=== PATIENT | male | born 1990 | race American Indian/Alaskan Native ===

== ENCOUNTER 2020-09-19 12:25 | Emergency (ER) | payer SELFPAY ==
[2020-09-19 12:54] VITALS: BP 117/65
== END 2020-09-19 18:42 ==
LOC: ED 12:25
DX: Z53.21 Procedure and treatment not carried out due to patient leaving prior to being seen by health care provider (principal)

== ENCOUNTER 2020-09-29 15:46 | Emergency (ER) | payer SELFPAY ==
--- NOTE | 2020-09-29 16:12 | Event Note ---
ED Screening Note Date of service: 09/29/20 Time: 16:12 ED Screening Note: 29-year-old -[place] Islander male was brought in by mom for concerns of paranoia. Mother reports that [facility] in [facility] with no history of any mental health concerns and now he is being released and is paranoid. This initial assessment/diagnostic orders/clinical plan/treatment(s) is/are subject to change based on patients health status, clinical progression and re- assessment by fellow clinical providers in the ED. Further treatment and workup at subsequent clinical providers discretion. Patient/guardian urged not to elope from the ED as their condition may be serious if not clinically assessed and managed. Initial orders include:
[2020-09-29] MEDS ORDERED: ZIPRASIDONE MESYLATE 20 MG VIAL IM ONE ×2 (17:17→17:32)
[2020-09-29] MEDS ORDERED: WATER FOR INJ Sterile (PF) 10 ML ONE (17:17)
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
[2020-09-29 18:15] LABS: Blood Urea Nitrogen 8 mg/dL (9-20); Calcium 9.1 mg/dL (8.4-10.2); Hemolysis Index 23
[2020-09-29 18:18] LABS: Basophils % (Auto) 0.8 % (0.0-1.8); Eosinophils % (Auto) 0.8 % (0.0-4.3); Hematocrit 43.2 % (35.5-45.6); Hemoglobin 14.1 gm/dl (11.8-15.2); Lymphocytes # (Auto) 1.3 K/mm3 (1.2-5.4); Lymphocytes % (Auto) 27.4 % (13.4-35.0); Mean Corpuscular HGB Conc 33 % (32-34); Mean Corpuscular Volume 95 fl (84-94); Monocytes # (Auto) 0.3 K/mm3 (0.0-0.8); Monocytes % (Auto) 5.7 % (0.0-7.3); Platelet Count 219 K/mm3 (140-440); Red Blood Count 4.54 M/mm3 (3.65-5.03); Red Cell Distribution Width 13.3 % (13.2-15.2)
[2020-09-29 18:19] LABS: BUN/Creatinine Ratio 11
[2020-09-29] MEDS ORDERED: diphenhydrAMINE 50 MG/ML VIAL IM ONE (18:19)
[2020-09-29] MEDS ORDERED: LORazepam 2 MG/ML VIAL IM ONE (18:19)
--- NOTE | 2020-09-29 18:36 | Cat Scan Report ---
CT head/brain wo con INDICATION / CLINICAL INFORMATION: 29 years Male; new onset psychosis. TECHNIQUE: Routine CT head without contrast. All CT scans at this location are performed using CT dos e reduction for ALARA by means of automated exposure control. COMPARISON: None. FINDINGS: BRAIN / INTRACRANIAL CONTENTS: No acute hemorrhage, mass effect, midline shift, hydrocephalus, or acu te, large territorial infarct. No signs of significant atrophy or chronic infarct. No significant whi te matter abnormality seen. CRANIOCERVICAL JUNCTION: No significant abnormality. ORBITS: No significant abnormality of visualized orbits. SINUSES / MASTOIDS: No significant abnormality in the visualized paranasal sinuses or mastoid air mary jane ls. ADDITIONAL FINDINGS: None. IMPRESSION: 1. No focal mass, hemorrhage, hydrocephalus, or acute, large territorial infarct. Signer Name: Balta Everett MD, III Signed: 09/29/2020 6:31 PM Workstation Name: [id number]
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
[2020-09-30 17:32] LABS: Bacteria,Urine 4+ /HPF (Negative); Bilirubin,Urine NEG (Negative); Blood,Urine NEG (Negative); Color,Urine Yellow (Yellow); Mucus,Urine FEW /HPF; Protein,Urine <15 mg/dL mg/dL (Negative); Sperm,Urine 1+ /HPF (NP); Urobilinogen,Urine < 2.0 mg/dL (<2.0)
[2020-09-30 17:36] LABS: Amphetamine Screen,Urine Negative; Benzodiazepines Screen,Urine Negative; Cocaine Screen,Urine Negative; Methadone Screen,Urine Negative; Opiate Screen,Urine Negative
[2020-09-30 18:09] LABS: Cannabinoid Screen,Urine Positive
--- NOTE | 2020-10-01 10:42 | Progress Note ---
Subjective - Reason for Consult Consult date: 10/01/20 Reason for consult: MHE Requesting physician: CYNTHIA KOCH - Chief Complaint Chief complaint: Psych Progress: Patient seen this AM in room eating, asked me if I am alright and everythings good. Discussed with patient that I strongly recommend he sees a psychiatrustr outpt and also neurologist due to his jerky like movements sometimes and further behavioral assessment since he was recently incarcerated. Patient says that he is good and "sane" he says he has never been on a psych medication before and why now. Patient again has not had any documented concerning behavioral health issues that warrants inpatient at this time, no psychotic behaviors, no manic like behaviors, no SI, HI or reports of AVH. REVIEW OF SYSTEMS Constitutional: Negative for weight loss ENT: Negative for stridor Respiratory: Negative for cough or hemoptysis All other systems reviewed and are negative MENTAL STATUS EXAMINATION General Appearance and Behavior: Age appropriate, good hygiene, wearing appropriate clothes, good eye contact, cooperative polite with questioning. Cooperation: Participating/engaged Psychomotor Behavior: unremarkable and within normal limits Mood: Good Affect and affective range: congruent with mood Thought Process: Fluent/Logical, Thought Content: Within reality, Speech: Normal volume, Regular rate and rhythm, Intellectual Functioning: Average Suicidal Ideation: Denies SI Homicidal Ideation: Denies HI Impulse Control: Unimpaired Insight and Judgment: Normal insight and judgment, Memory: Normal, Attention: Normal, Orientation: Alert, oriented, Diagnoses: Assessment and Plan - Psychiatric problem (1) Behavior concern in adult Current Visit: Yes Status: Acute (2) Adjustment disorder with disturbance of conduct Current Visit: Yes Status: Acute Treatment Plan At this moment, I do not see any acute concern for inpatient, patient is scored 30 out of 30 on his mental status exam, and I believe patient's incarceration/an unknown experiences while he was there could have caused patient's initial trauma and change in behavior. In this setting, an outpatient neurological evaluation is recommended due to involuntary motor movements or tick like behavior, then outpt psych, behavioral counseling, psychotherapy, counseling are more appropriate, if family wants inpatient, they have to get legal autho rity or guardian status. Patient does not want inpatient at this time. Can be discharged. MEDICATIONS: Risks, benefits and alternatives of medications discussed with the patient, questions answered and consent obtained from patient. PSYCHOTHERAPY: Supportive psychotherapy provided MEDICAL: Per primary team DELIRIUM PRECAUTIONS: Please re-orient patient frequently, keep lights on during the day, and minimize benzodiazepines and opiates as these medications could worsen patient's confusion. FOUNDRY MELT SUPERVISOR: DISPOSITION: Outpt follow up with neurology and psychiatry recommended. Case staffed and discussed with Dr. Musa LEGAL STATUS: 1013 rescinded FOLLOW-UP: Will sign off Thank you for the consult. Please contact with any questions and/or concerns. Mental Status Exam - Vital signs Last Vital Signs Temp 98.4 F 10/01/20 07:43 Pulse 72 10/01/20 07:43 Resp 20 10/01/20 07:43 BP 106/61 10/01/20 07:43 Pulse Ox 98 10/01/20 07:43 Assessment and Plan - Patient Problems (1) Behavior concern in adult Current Visit: Yes Status: Acute (2) Adjustment disorder with disturbance of conduct Current Visit: Yes Status: Acute
[2020-10-01 13:43] VITALS: BP 120/78
== END 2020-10-01 13:46 | disposition home or self-care (01) ==
LOC: ED 15:46
DX: F43.29 Adjustment disorder with other symptoms (principal)
CPT/HCPCS: 36415; 70450; 80048; 84439; 84443; 85025; 99284; J3486; 80307; 80320; 81001; G0480